=== PATIENT | female | born 1975 | race Caucasian/White ===

== ENCOUNTER 2024-02-18 05:41 | Emergency (ER) | payer MEDICAID ==
[~2024-02-18] VITALS: Ht 152.4 cm; Wt 125.2 kg
--- NOTE | 2024-02-18 06:06 | NUR ---
BIBSELF FROM HOME C/O EYE SWELLING & ITCHINESS LAST NIGHT. FINISH ATB AMOX & IBUPROFEN LAST NIGHT FOR DENTAL. DENIES SOB
[2024-02-18] MEDS ORDERED: PRED20TA PO (06:17)
[2024-02-18] MEDS ORDERED: HYDR-500 PO (06:17)
[2024-02-18] MEDS ORDERED: FAMOTIDINE (20 MG) 20 MG TABLET ONE (06:22)
[2024-02-18] MEDS ORDERED: predniSONE 20 MG TABLET ONE (06:22)
[2024-02-18] MEDS ORDERED: hydrOXYzine 10 MG TABLET ONE ×2 (06:22→06:24)
[2024-02-18] MEDS: hydrOXYzine 10 MG TABLET PO ONE (06:28)
[2024-02-18] MEDS: FAMOTIDINE (20 MG) 20 MG TABLET PO ONE (06:28)
[2024-02-18] MEDS: predniSONE 10 MG TABLET PO ONE (06:28)
[2024-02-18] MEDS ORDERED: hydrOXYzine HCL SYRUP 10 MG/5 ML UDC PO PRN (06:30)
--- NOTE | 2024-02-18 06:43 | NUR ---
Patient discharged to home in stable condition. Written and verbal after care instructions given. Patient verbalizes understanding of instruction.
[2024-02-18 06:45] VITALS: BP 137/73; TEMP 98.2; O2SAT 98
== END 2024-02-18 06:45 | disposition home or self-care (01) ==
LOC: ER 05:53
DX: T78.49XA Other allergy, initial encounter (principal); Z60.2 Problems related to living alone; X58.XXXA Exposure to other specified factors, initial encounter
CPT/HCPCS: 99284; Q0177 ×3; J7512 ×2